=== PATIENT | male | born 1990 | race Two or more races ===

== ENCOUNTER 2024-08-04 11:50 | Emergency (ER) | payer BC, SELFPAY ==
[2024-08-04 11:52] VITALS: BP 135/70; PULSE 51; RESP 18; TEMP 36.8; O2SAT 96; BMI 30.2
[2024-08-04 11:55] VITALS: PULSE 56; RESP 16; O2SAT 97
--- NOTE | 2024-08-04 12:16 | XR_ITS ---
Examination: AP chest single view Technique one AP portable upright chest single view Date and time: August 04, 2024 at 1241 hours INDICATIONS: Syncopal episode today FINDINGS: Normal heart size. No aspiration pneumonia. Osseous structures are intact IMPRESSION: No active disease
--- NOTE | 2024-08-04 12:16 | EKG_ITS ---
[facility] Test Date: 2024-08-04 Pat Name: RYAN SOLORIO Department: Room: - Gender: Male [employer]: : 1990 Requested By: Lina Mcmillan Order Number: [id number] Reading MD: Lina Mcmillan Measurements Intervals [place] Rate: 56 P: 54 UT: 164 QRS: 56 QRSD: 102 T: 48 QT: 447 QTc: 433 Interpretive Statements SINUS BRADYCARDIA EARLY REPOLARIZATION [ST ELEVATION WITH NORMALLY INFLECTED T-WAVE] No previous ECG available for comparison /[id number]/[email or web address]/[id number]
--- NOTE | 2024-08-04 12:17 | EDNOTE_ITS ---
<Statement entered by Celeste Morton MD - 08/15/24 01:04> As co-signing physician, I was present and available for consult prn. I concur with the plan and care as documented by the midlevel provider. ED Syncope RME/HPI General Chief Complaint: Syncope / Near Syncope Stated Complaint: SYNCOPE Time Seen by Provider: 08/04/24 12:12 Arrival date/time: 08/04/24 11:50 RME / HPI RME / HPI narrative: 34-year-old male patient with no significant medical history, came in for evaluation regarding syncope. Patient was in clinic complaining his for checkup today developed syncope, lasted for 1 minute. No injury noted. Patient told me that earlier this morning patient vomited once. Patient was noted to be bradycardic and hypotensive with a EMS arrived. Patient was alert and oriented with a EMS arrival. Currently patient is denying any complaints. Patient is taking preworkout supplement and creatinine to build up muscle. Denies any cardiac issue. Related Data Allergies Allergy/AdvReac Type Severity Reaction Status Date / Time No Known Allergies Allergy Mild Uncoded 02/07/09 13:06 Review of Systems Review of Systems Narrative Review of Systems: Review of system reviewed and within normal limits except mentioned in HPI ED Exam Narrative Physical exam: VITAL SIGNS: Reviewed. GENERAL APPEARANCE: Alert and interactive, follows commands, no acute distress, HEAD AND FACE: Non-traumatic. ENT: PERRL, pink conjunctivitis, eyelid no trauma, Mucous membrane moist. NECK: Supple, nontender, no nuchal rigidity. CHEST: No tenderness, no crepitus, no paradoxical movement, no retractions. LUNGS: Clear, well ventilated, symmetric, no rales, no wheezing, no ronchi, no stridor, good breath sounds bilaterally. HEART: Regular rate, regular rhythm, no murmur, no gallops. ABDOMEN: Soft, positive bowel sounds, nondistended, no guarding, nontender, no rebound, no masses, RECTAL: Deferred. GENITAL: Deferred. NEUROLOGICAL: Gross motor function intact sensory function intact, Appropriate for age. MUSCULOSKELETAL: low back nontender, full range of motion. EXTREMITIES: Nontender, full range of motion. SKIN: Color pink, dry, no rash, no lacerations, no abrasions, no contusions. LYMPHATICS: Deferred. Course Quality Measures none Orders Category Date Time Status EKG (ED ONLY) *Do not use* NOW Care 08/04/24 12:16 Completed EKG (ED Only) Stat Exams 08/04/24 12:16 Draft XR chest 1V Stat Exams 08/04/24 12:16 Completed CBC Stat Lab 08/04/24 12:34 Completed Comprehensive Metabolic Panel Stat Lab 08/04/24 12:34 Completed Drug Screen,Urine Stat Lab 08/04/24 12:53 Completed Partial Thromboplastin Time Stat Lab 08/04/24 12:34 Completed Troponin I Stat Lab 08/04/24 12:34 Completed Urinalysis, C/S if Indicated Stat Lab 08/04/24 12:53 Completed Vital Signs Vital signs: Vital Signs Temperature 98.2 F 08/04/24 11:52 Pulse Rate 51 L 08/04/24 11:52 Respiratory Rate 18 08/04/24 11:52 Blood Pressure 135/70 H 08/04/24 11:52 Pulse Oximetry (%) 96 08/04/24 11:52 Oxygen Delivery Method Room Air 08/04/24 11:52 Syncope MDM Narrative MDM Narrative:: Decision to discharge the patient. The patient and all family were given an opportunity to ask questions and understood their discharge instructions. Discharge instructions specifically included follow up provider and time frame, current and/or new medications and possible side effects, indications for sooner follow up or return to the emergency department, and the expected course of current diagnosis. Patient reports feeling better as well and giving evidence of significant clinical improvement, I believe patient is now a candidate for discharge. Provider Notation: Although this document has been carefully reviewed, there may still be some phonetic and other typographical errors. These error are purely gr ammatical due to imperfections in the software program and should not be construed in any way to compromise the substance of the patient's medical care during this visit. Condition prior to disposition: stable Patient data External records reviewed:: None Clinical information provided by:: patient Social determinants that could affect healthcare access:: none Patient has the following chronic illnesses:: None How is presenting disease/condition affected by chronic disease/condition?: no chronic disease Evaluation data The following diagnostics were reviewed and interpreted by me:: lab results, radiology exam(s) and EKG tracing(s) Lab and/or radiology exams considered but not ordered:: None Interpretation Summary: 34-year-old male patient with no significant medical history, came in for evaluation regarding syncope. Patient was in clinic complaining his for checkup today developed syncope, lasted for 1 minute. No injury noted. Patient told me that earlier this morning patient vomited once. Patient was noted to be bradycardic and hypotensive with a EMS arrived. Patient was alert and oriented with a EMS arrival. Currently patient is denying any complaints. Patient is taking preworkout supplement and creatinine to build up muscle. Denies any cardiac issue. Medications / Prescriptions Medications or Prescriptions considered but not ordered:: None Medication administrations:: IV fluids Consultations Consultation(s) initiated? (list below): No Diagnosis Syncope Differential Diagnosis: vasovagal syncope and dehydration Most likely diagnosis given after review of the tests above:: Vasovagal syncope Admission Indicated Admission indicated?: not indicated Admission Request Was there a request for admission?: No Disposition Plan Disposition Plan: Discharge Discharge Attestation Discharge Attestation: The patient and all family members were given an opportunity to ask questions and understood the discharge instructions. Discharge instructions specifically effects, indications for sooner follow up or return to the emergency department, and the expected course of current diagnosis. Patient condition: Stable Discharge Plan Plan Patient Disposition: HOME (Self Care) Discharge Disposition comment: Stable Prescriptions/Referrals Referrals: No Primary/Family,Physician [Primary Care Provider] - In 1 week Problem List Clinical Impression: Vasovagal syncope Patient/Caregiver Discharge Instructions Discharge Activity: activity as tolerated Education Materials: Understanding Vasovagal Syncope Additional Instructions: Thank you for the opportunity for serving you today. You are stable for discharged . You are advised to: Follow-up with your PCP in 1 to 2 days Return to ED for worsening of symptoms Increase oral fluids Please ask your PCP to refer you to neurologist regarding your syncope further evaluation Print Language: Korean Stand Alone Forms: Milena Award Info., Work/School Release, Patient Portal Info Letter VASHTI/BERNARDO Supervising Physician VASHTI/BERNARDO Supervising Physician: MD Janice
[2024-08-04 12:43] LABS: Basophils % (Auto) 0 % (0-2.5); Eosinophils % (Auto) 1 % (0-10); Hematocrit 38.8 % (41.0-53.0); Hemoglobin 13.7 g/dL (13.5-16.0); Immature Granulocytes % (Auto) 0 % (0-0); Immature Granulocytes Auto 0.02 Thou/mm3 (0.00-0.00); Lymphocytes # (Auto) 2.3 Thou/mm3 (1.0-4.8); Lymphocytes % (Auto) 31 % (10-50); Mean Corpuscular HGB Conc 35.3 g/dl (31.0-37.0); Mean Corpuscular Hemoglobin 30.7 pg (25.0-35.0); Mean Corpuscular Volume 87 fL (80-100); Monocytes # (Auto) 0.5 Thou/mm3 (0.0-0.8); Monocytes % (Auto) 6 % (0-12); Neutrophils # (Auto) 4.5 Thou/mm3 (1.8-7.7); Neutrophils % (Auto) 61 % (37-80); Nucleated Red Blood Cell % 0 /100 WBC (0); Platelet Count 147 Thou/mm3 (140-440); RDW Standard Deviation 39.3 fL (35.1-43.9); Red Blood Count 4.46 Miln/mm3 (4.50-5.90); White Blood Count 7.4 Thou/mm3 (3.8-10.6)
[2024-08-04 13:05] LABS: Collection Type, Urine Clean Catch; Squamous Epithelial Cell,Urine 0 /hpf (0-5)
[2024-08-04 13:05] LABS: Alanine Aminotransferase 23 U/L (10-49); Albumin/Globulin Ratio 2.2 (1.2-2.2); Alkaline Phosphatase 57 U/L (46-116); Anion Gap 9 (7-16); Aspartate Amino Transferase 19 U/L (0-34); BUN/Creatinine Ratio 17 Ratio (12-20); Bilirubin,Total 0.7 mg/dL (0.3-1.2); Blood Urea Nitrogen 19 mg/dL (9-23); Calcium 8.5 mg/dL (8.3-10.6); Calcium (Corrected) 8.5 mg/dL (8.5-10.1); Chloride 105 mMol/L (98-107); Creatinine (Component) 1.1 mg/dL (0.6-1.3); Estimated Creatinine Clearance 108.6 mL/min (>60); Globulin 1.8 gm/dL (2.3-3.5); Glucose 108 mg/dL (74-106); Osmolality,Calculated 284 (275-295); Sodium 141 mMol/L (136-145); Total Protein 5.8 gm/dL (5.7-8.2); Troponin I < 0.002 ng/mL (0.0-0.045); eGFR > 60 See Note
[2024-08-04 13:10] LABS: Bilirubin,Urine Negative (Negative); Blood,Urine Negative (Negative); Clarity,Urine Clear (Clear/Hazy); Color,Urine Lt-Yellow (Lt Yel-Yel); Culture Indicated,Urine Not Indicated; Glucose, Urine Negative (Negative); Ketones,Urine Negative (Negative); Leukocyte Esterase,Urine Negative (Negative); Nitrite,Urine Negative (Negative); Protein,Urine Trace (Neg - Trace); RBC,Urine < 1 /hpf (0-3); Urobilinogen,Urine Negative mg/dL (0.0-1.0); WBC,Urine 1 /hpf (0-5)
[2024-08-04 13:21] LABS: Amphetamine/Methamp Scrn,U Negative (Negative); Barbiturate Screen,Urine Negative (Negative); Benzodiazepines Screen,Urine Negative (Negative); Benzoylecgonine Screen, Ur Negative (Negative); Fentanyl Screen,Urine Negative (Negative); Opiate Screen,Urine Negative (Negative); THC Screen,Urine Positive (Negative)
[2024-08-04 14:04] VITALS: BP 126/73; PULSE 60; RESP 18; TEMP 36.6; O2SAT 99
== END 2024-08-04 14:46 | disposition home or self-care (01) ==
PROVIDERS: Nurse Practitioner Family; Emergency Provider Emergency Medicine
DX: R55 Syncope and collapse (principal); R00.1 Bradycardia, unspecified
CPT/HCPCS: 36415; 71045; 80053; 80307; 81001; 84484; 85025; 85730; 93005; 99283